=== PATIENT | male | born 1975 | race Two or more races ===

== ENCOUNTER 2017-08-26 06:36 | Day surgery (SDC) | payer OTHER ==
[~2017-08-26] VITALS: Ht 170.2 cm; Wt 94.3 kg
[2017-08-26 06:54] VITALS: BP 124/74
[2017-08-26 10:28] VITALS: BP 119/76
== END 2017-08-26 10:10 | disposition home or self-care (01) ==
LOC: GI 06:36 → OR 07:30 → GI 07:30
PROVIDERS: Internal Medicine Gastroenterology
PROC: 0DJD8ZZ Inspection of Lower Intestinal Tract, Via Natural or Artificial Opening Endoscopic (ICD-10-PCS; principal; 2017-08-26 07:30)
DX: K92.1 Melena (principal); K64.8 Other hemorrhoids; Z68.34 Body mass index [BMI] 34.0-34.9, adult
CPT/HCPCS: 45378; J1200; J1610; J2250; J2310; J3010; J3490